=== PATIENT | female | born 1940 | race Caucasian/White ===

== ENCOUNTER → 2016-12-26 | Outpatient (CLI) | payer MEDICARE, BC ==
[~2016-12-26] MED LIST: ACETAMINOPHEN PO; ADVAIR 2501 DISK W/D PO; ALBUTEIN50 ML IH; ALBUTEROL MININEB NEB; ALBUTEROL17 GM INH; ALBUTEROL17 GM NEB; ALLEGRA ALLERG180 MG PO; AMLODIPINE BESYL5 MG PO; ASPIRIN81 M1 PO; ASPIRINEC PO; AUGMENTIN PO; AZITHROMYCIN250 MG PO; BAYER ASPIRIN325 M1 PO; BENAZEPRIL PO; BROVANA15 MCG/2 M INH; BROVANA15 MCG/2 M NEB; BUDESONIDE0.5 MG/2 M IH; BUSPAR PO; BUSPIRONE HCL7.5 MG PO; CEFUROXIME250 M1 PO; CENTRUM SILVER PO; CIPRO PO; CLARITIN10 M1 PO; CLARITIN10 M3 PO; COMBIVENT MININEB INH; COMBIVENT U/D3 M2 INH; DALIRESP500 MCG PO; DOXYCYCLINE PO; FAMOTIDINE PO; FLONASE 0.05% N16 G1; FLONASE16 GM; FORADIL12 MCG NEB; HUMIBID-LA600 MG PO; HYDROCODON-ACE1 EAC7 PO; HYDROCODONE/APA1 T16 PO; IBUPROFEN PO; IMDUR PO; IMDUR-ER30 M1 PO; IMDUR-ER30 MG PO; IMDUR30 MG PO; IPRAT-ALBUT 0.5-3 ML IH; IPRATROPIUM0.2 MG/ML NEB; K-DUR20 ME2 PO; KCL PO; LASIX PO; LASIX20 MG PO; LEVAQUIN PO; LEVAQUIN750 MG PO; LEVOTHROID125 MCG PO; LEVOTHYROXINE112 MCG PO; LO-DOSE ASPIRIN81 M1 PO; LOPRESSOR PO; LOTENSIN20 MG PO; LOTREL 10/20 MG1 CAP PO; LOVASTATIN20 MG PO; MEDROL DOSEPAK4 MG PO; METOPROLOL SUCC25 MG PO; METOPROLOL TAR25 MG PO; MEVACOR PO; MEVACOR10 MG PO; MEVACOR40 MG PO; MULTI-VITAMIN1 EAC1 PO; NASACORT10.8 ML NS; NORVASC2.5 MG PO; OMNICEF300 MG PO; OXYGEN; OXYGEN IH; PEPCID40 MG PO; PHENAZOPYRIDINE PO; PLAVIX PO; PREDNISONE PO; PREDNISONE10 MG PO; PREDNISONE10 MG/DOSE PO; PRIMACOR; PROAIR INH; PROVENTIL0.83 MG/ML IH; PULMICORT0.25 MG/2 IH; PULMICORT0.5 MG/2 M NEB; PULMICORT0.5 MG/21 INH; QVAR7.3 G1 INH; REGLAN10 MG PO; SENNOSIDES-DOC1 EACH PO; SEREVENT D50 MCG/DIS PO; SINGULAIR PO; SPIRIVA18 MCG INH; STOOL SOFTENER1 EAC2 PO; SYMBICORT INH; SYNTHROID PO; SYNTHROID125 PO; TAMIFLU75 M1 PO; THEO-DUR300 MG PO; THEOPHYLLIN PO; TYLENOL325 M1 PO; VANTIN200 MG PO; ZITHROMAX PO; ZOCOR PO; ZOSYN 3.373.375 G/VI IV; [UNRECOGNIZED DRUG - OTHER]; [UNRECOGNIZED DRUG - OTHER] TP; daliresp PO
--- NOTE | ~2016-12-26 | US135 ---
[facility] A Service of [facility] RADIOLOGY TEXT RESULTS PATIENT: AIRAM ALBARADO LOCATION: CNIV : 39 UNIT #: [id number] AGE: [address]: Darci Fischer MD SEX: F ORDER DR: [id number] [facility] [address] [place], [place] [address] [id number] O MR#: [id number] Acc #: [id number] NAME: AIRAM ALBARADO. : 1940 SEX: F STUDY DATE/TIME: 12/26/2016 13:27 UNIT: CNIV ROOM: STUDY DESCRIPTION: US U/L Ext Art Study Comp Kristian Attending Physician: Darci Fischer M.D. Referring Physician: Darci Fischer M.D. Ordering Physician: Darci Fischer M.D. Primary Care Physician: Valdo Rizzo M.D. MEDICAL IMAGING REPORT This report is preliminary unless electronic signature is present EXAM Bilateral lower extremity arterial studies HISTORY Edema of the legs. Claudication, bilateral. FINDINGS Pulse volume recordings are slight degraded but appear to be normal and triphasic from the thigh to the ankle levels bilaterally. Doppler velocity waveforms are biphasic at the dorsalis pedis and posterior tibial arteries bilaterally. Right brachial pressure is 131 and left brachial pressure is 143. On the right side, high thigh pressure is 222, low thigh 183, calf pressure 204, posterior tibial 156, dorsalis pedis 141, great toe 67 for a right ankle-brachial index of 1.09. On the left side, high thigh pressure is 195, low thigh 183, calf pressure 177, posterior tibial 152, dorsalis pedis 146, great toe 65 for a left ankle-brachial index of 1.06. IMPRESSION Normal perfusion is seen in the lower extremities bilaterally, with MAHIN of 1.09 on the right and 1.06 on the left. Toe pressures are borderline bilaterally, but appear to be normal. Dictated by... Mark Carbone M.D. THIS IS AN ELECTRONICALLY VERIFIED REPORT [facility] A Service of [facility] RADIOLOGY TEXT RESULTS PATIENT: AIRAM ALBARADO LOCATION: CNIV : 39 UNIT #: [id number] AGE: [address]: Darci Fischer MD SEX: F ORDER DR: Mark Carbone M.D. at 12/29/2016 2:06 PM /flaco TD: 12/26/2016 21:32 JOB #: [id number] MEDICAL IMAGING REPORT Page 1 of 1 COPY
--- NOTE | ~2016-12-26 | US84 ---
[id number] [facility]. [facility] [address] [place], [place] [address] [id number] O MR#: [id number] Acc #: [id number] NAME: AIRAM ALBARADO : 1940 SEX: F STUDY DATE/TIME: 12/26/2016 13:38 UNIT: CNIV ROOM: STUDY DESCRIPTION: US LE Veins Complete Kristian Stdy Attending Physician: Darci Fischer M.D. Referring Physician: Darci Fischer M.D. Ordering Physician: Darci Fischer M.D. Primary Care Physician: Valdo Rizzo M.D. MEDICAL IMAGING REPORT This report is preliminary unless electronic signature is present EXAM Left lower extremity duplex, 12/26/16 HISTORY Bilateral lower extremity swelling and cramping for one year. History of bilateral lower extremity iliac stents. FINDINGS Venous duplex imaging of the lower extremities was performed. The right and left femoral, popliteal, tibial and peroneal veins are patent, compressible with normal venous filling in all the visualized veins. No evidence of DVT is seen in the lower extremities bilaterally. Bilateral medial popliteal cysts are noted. IMPRESSION No evidence of DVT is seen in the lower extremities bilaterally. Popliteal cysts are noted bilaterally. Dictated by... Mark Carbone M.D. THIS IS AN ELECTRONICALLY VERIFIED REPORT Mark Carbone M.D. at 12/29/2016 2:06 PM Julisa TD: 12/26/2016 21:37 JOB #: [id number] MEDICAL IMAGING REPORT Page 1 of 1 COPY
== END | disposition home or self-care (01) ==
LOC: CNIV 13:09
DX: I73.9 Peripheral vascular disease, unspecified (principal); R60.0 Localized edema; M71.22 Synovial cyst of popliteal space [Baker], left knee
CPT/HCPCS: 93923; 93970

== ENCOUNTER → 2017-05-25 | Outpatient (CLI) | payer MEDICARE, BC ==
--- NOTE | ~2017-05-25 | US37 ---
[facility] A Service of [facility] RADIOLOGY TEXT RESULTS PATIENT: AIRAM ALBARADO LOCATION: CNIV : 39 UNIT #: [id number] AGE: [address]: RAOUL MCKEON APRN SEX: F ORDER DR: [id number] [facility] [address] [place], [place] [address] [id number] O MR#: [id number] Acc #: [id number] NAME: AIRAM ALBARADO : 1940 SEX: F STUDY DATE/TIME: 05/25/2017 10:16 UNIT: CNIV ROOM: STUDY DESCRIPTION: US Carotid W/Doppler Bilateral Attending Physician: Raoul Mckeon Aprn Referring Physician: Raoul Mckeon Aprn Ordering Physician: Raoul Mckeon Aprn Primary Care Physician: Valdo Rizzo M.D. MEDICAL IMAGING REPORT This report is preliminary unless electronic signature is present EXAM Bilateral carotid duplex HISTORY Carotid stenosis. FINDINGS There is patent flow seen through the right common carotid, internal carotid and external carotid arteries. The mid portion of the right common carotid artery has some heterogeneous, irregular plaque, and there is also some more homogeneous, irregular, and echogenic plaque seen in the right carotid bifurcation, extending to the internal and external carotid arteries. The right common carotid artery peak velocity is 97 cm per second. The right internal carotid artery peak systolic and right diastolic velocities are: Proximal 114/23 cm/sec, mid 110/19 cm/sec, distal 97/18 cm/sec. The right external carotid artery peak velocity is 141 cm/sec, and vertebral artery 19 cm/sec. Vertebral artery flow, however, is retrograde. The right ICA:CCA ratio is 1.2. There is patient flow seen throughout the left common carotid, internal carotid and external carotid arteries. The left common carotid artery has several irregular, focal areas of homogeneous echogenic plaque. The left carotid bifurcation has heterogeneous, irregular and echogenic plaque. This plaque extends to the internal and external carotid arteries. The left common carotid artery peak velocity is 80 cm/sec. The left internal carotid artery peak systolic and diastolic velocities are: Proximal 117/22 cm/sec, mid 93/16 cm/sec, distal 65/12 cm per second. The left external carotid artery peak velocity is 250 cm/sec, vertebral artery is 70 cm/sec. The left ICA:CCA ratio is 1.5. FINDINGS 1. The right carotid artery has mild atherosclerosis which is consistent STS. [facility] A Service of [facility] RADIOLOGY TEXT RESULTS PATIENT: AIRAM ALBARADO LOCATION: [facility] : 39 UNIT #: [id number] AGE: [address]: RAOUL MCKEON APRN SEX: F ORDER DR: with less than 50% stenosis by duplex criteria, not considered hemodynamically significant. 2. The left carotid artery has mild atherosclerosis which is not hemodynamically significant by duplex criteria (less than 50%). 3. Vertebral flow on the right is retrograde, suggestive of a proximal subclavian or innominate stenosis versus occlusion. 4. Likely moderate to high grade stenosis of the left external carotid artery. Dictated by... Tim Tompkins M.D. THIS IS AN ELECTRONICALLY VERIFIED REPORT Tim Tompkins M.D. at 05/30/2017 4:07 PM Lakisha TD: 05/26/2017 04:38 JOB #: [id number] MEDICAL IMAGING REPORT Page 1 of 1 COPY
== END | disposition home or self-care (01) ==
LOC: CNIV 09:50
DX: I65.23 Occlusion and stenosis of bilateral carotid arteries (principal)
CPT/HCPCS: 93880